=== PATIENT | male | born 1995 | race Caucasian/White ===

== ENCOUNTER 2018-10-14 22:34 | Emergency (ER) | payer SELFPAY ==
[2018-10-14] MEDS ORDERED: NS 1,000 ML IV ONE (22:56)
--- NOTE | 2018-10-14 23:01 | EDPHY ---
H & P Stated Complaint: dizzy, lightheaded, anxious Time Seen by Provider: 10/14/18 22:48 HPI/ROS: Chief Complaint: Lightheaded, palpitations HPI: 22-year-old college student had an episode earlier tonight of sudden onset of heart racing, anxiety, lightheadedness. He has had similar episodes in the past but has never sought medical help. No chest pain or shortness of breath. Is feeling quite anxious and states he is under lot of stress with final exam is coming out. No family history of coronary artery disease or sudden cardiac at a young age. He also admits to smoking marijuana earlier today. He has had multiple episodes of these in the past all been associated with increasing stress and anxiety. Does not have a primary care physician. No recent illness. No fevers or chills. No nausea or vomiting. ROS: 10 systems were reviewed and were negative except those elements noted in the HPI. PMH: Denies Social History: No smoking, no alcohol, occasional marijuana Family History: non-contributory Physical Exam: Gen: Awake, Alert, No Distress HEENT: Nose: no rhinorrhea Eyes: PERRLA, EOMI Mouth: Moist mucosa Neck: Supple, no JVD Chest: nontender, lungs clear to auscultation Heart: S1, S2 normal, no murmur Abd: Soft, non-tender, no guarding Back: no CVA tenderness, no midline tenderness Ext: no edema, non-tender Skin: no rash Neuro: CN II-XII intact, Sensation grossly intact, Strength 5/5 in bilateral upper and lower extremities - Personal History Current Tetanus Diphtheria and Acellular Pertussis (TDAP): Yes - Medical/Surgical History Hx Asthma: No Hx Chronic Respiratory Disease: No Hx Diabetes: No Hx Cardiac Disease: No Hx Renal Disease: No Hx Cirrhosis: No Hx Alcoholism: No Hx HIV/AIDS: No Hx Splenectomy or Spleen Trauma: No - Social History Smoking Status: Never smoked Constitutional: Initial Vital Signs Temperature (C) 37.1 C 10/14/18 22:36 Heart Rate 114 H 10/14/18 22:36 Respiratory Rate 20 10/14/18 22:36 Blood Pressure 171/102 H 10/14/18 22:36 O2 Sat (%) 97 10/14/18 22:36 Allergies/Adverse Reactions: No Known Allergies Allergy (Unverified 10/14/18 22:36) Home Medications: Medication Instructions Recorded NK [No Known Home Meds] 10/14/18 Medical Decision Making - Diagnostics EKG Interpretation: ECG time 10:49 p.m., sinus tachycardia with a rate of 110, normal axis, normal intervals, no acute ST or T-wave changes. ED Course/Re-evaluation: Healthy 22-year-old male with no risk factors for coronary artery disease. Normal ECG. Negative troponin. Symptoms consistent with anxiety reaction. Patient does have a lot of stressors at this time. Multiple episodes of this in the past. Has been associated with marijuana use. Plan will be for discharge and follow up at [facility], return for any concerns. - Data Points Laboratory Results: 10/14/18 10/14/18 22:54 22:54 WBC Pending RBC Pending Hgb Pending Hct Pending MCV Pending MCH Pending MCHC Pending RDW Pending Plt Count Pending MPV Pending Neut % (Auto) Pending Lymph % (Auto) Pending [place] % (Auto) Pending Eos % (Auto) Pending Baso % (Auto) Pending Nucleat RBC Rel Count Pending Absolute Neuts (auto) Pending Absolute Lymphs (auto) Pending Absolute Monos (auto) Pending Absolute Eos (auto) Pending Absolute Basos (auto) Pending Absolute Nucleated RBC Pending Immature Gran % Pending Immature Gran # Pending Sodium Pending Potassium Pending Chloride Pending Carbon Dioxide Pending Anion Gap Pending BUN Pending Creatinine Pending Estimated GFR Pending Glucose Pending Calcium Pending Departure - Departure Disposition: Home, Routine, Self-Care Clinical Impression: Palpitations, Anxiety Condition: Good Instructions: Heart Palpitations (ED) Additional Instructions: Follow up at [facility] in 2-3 days for further evaluation. Return to the emergency department for fainting, chest pain, shortness of breath , or any other concerns. Referrals: FREDERIC Murphy,. [Clinic] - As per Instructions
[2018-10-14 23:10] LABS: PLATELET COUNT 366 10^3/uL (150-400)
[2018-10-14 23:32] VITALS: BP 138/90
--- NOTE | 2018-10-15 04:14 | CPEKG ---
Test Reason : OPEN Blood Pressure : / mmHG Vent. Rate : 110 BPM Atrial Rate : 110 BPM P-R Int : 161 ms QRS Dur : 091 ms QT Int : 353 ms P-R-T Axes : 047 037 -11 degrees QTc Int : 478 ms Sinus tachycardia Borderline T abnormalities, inferior leads Borderline prolonged QT interval Confirmed by Vamsi Hugo ([id number]) on 10/15/2018 4:14:00 AM Referred By: Confirmed By:Vamsi Hugo
== END 2018-10-14 23:39 | disposition home or self-care (01) ==
DX: R00.2 Palpitations (principal); F41.9 Anxiety disorder, unspecified; E86.9 Volume depletion, unspecified; R42 Dizziness and giddiness
CPT/HCPCS: 84484-PO